=== PATIENT | male | born 1950 | race African-American/Black ===

== ENCOUNTER → 2017-06-19 | Outpatient (CLI) | payer MEDICARE ==
[2016-05-18 11:07] VITALS: BP 174/95
[~2017-06-19] MED LIST: GOSE10.8 SQ; INSU100V13 SQ; INSU100V31 SQ; LISI10TA2 PO; LISI1TAB7 PO; PRAV10TA2 PO; PROVENTIL HFA6.7 GM IH; TAMS0.4C97 PO; TIOT18CA IH
--- NOTE | 2017-06-19 13:00 | CARD ---
APPROVED REPORT EXAM: Two-dimensional and M-mode echocardiogram with Doppler and color Doppler. Other Information Quality : Average Rhythm : NSR INDICATION Dyspnea 2D DIMENSIONS RVDd2.4 (2.9-3.5cm)Left Atrium(2D)3.3 (1.6-4.0cm) IVSd1.2 (0.7-1.1cm)Aortic Root(2D)3.4 (2.0-3.7cm) LVDd4.1 (3.9-5.9cm)LVOT Diameter2.1 (1.8-2.4cm) PWd1.2 (0.7-1.1cm)LVDs3.0 (2.5-4.0cm) FS (%) 27.8 %SV41.4 ml LVEF(%)54.4 (>50%) Aortic Valve AoV Peak Jared.111.2cm/sAoV VTI20.0cm AO Peak GR.4.9mmHgLVOT Peak Jared.106.6cm/s LVOT VTI 20.73cmAO Mean GR.3mmHg KIRSTEN (VMAX)5.58cm2 Mitral Valve MV E Eqhvhnzw17.7cm/sMV DECEL GXYQ295cb MV A Ijydnstl56.6cm/sMV E Mean Gr.2mmHg MV BUI67mpA/A Ratio0.6 MV A Oospomba474xeLHW (PHT)3.24cm2 TDI E/Lateral E'9.2E/Medial E'8.8 Pulmonary Valve PV Peak Rokqufds086.6cm/sPV Peak Grad.7mmHg RVOT VTI12.4cm Tricuspid Valve TR P. Rfhqsunj674ad/sRAP JYREJEJX0jiQw TR Peak Gr.70oxFxNHGK19yfMt Pulmonary Vein S1 Jvqeuqii14.8cm/sD2 Ibdmwyps28.2cm/s LEFT VENTRICLE The left ventricle is normal size. There is borderline concentric left ventricular hypertrophy. Left ventricle systolic function is normal. The Ejection Fraction is 55-60%. There is normal LV segmental wall motion. Tissue Doppler imaging reveals mild left ventricular diastolic dysfunction. Transmitral Doppler flow pattern is Grade I-abnormal relaxation pattern. There is no ventricular septal defect vi sualized. RIGHT VENTRICLE The right ventricle is normal size. The right ventricular systolic function is normal. ATRIA The left atrium size is normal. The right atrium size is normal. The interatrial septum is intact wit h no evidence for an atrial septal defect or patent foramen ovale as noted on 2-D or Doppler imaging. AORTIC VALVE The aortic valve is normal in structure and function. The aortic valve is trileaflet. Doppler and Col or Flow revealed no significant aortic regurgitation. There is no significant aortic valvular stenosi s. MITRAL VALVE The mitral valve is normal in structure and function. There is no mitral valve stenosis. Doppler and Color Flow revealed trace mitral regurgitation. TRICUSPID VALVE The tricuspid valve is not well visualized. Doppler and Color Flow revealed trace tricuspid regurgita tion. The PA pressure was estimated at 18 mmHg. There is no tricuspid valve stenosis. PULMONIC VALVE The pulmonic valve is not well visualized. Doppler and Color Flow revealed no pulmonic valvular regur gitation. There is no pulmonic valvular stenosis. GREAT VESSELS The aortic root is normal in size. The ascending aorta is normal in size. Normal pulmonary venous guillermo w (Doppler). The IVC is normal in size and collapses >50% with inspiration. PERICARDIAL EFFUSION There is no evidence of significant pericardial effusion. Critical Notification Critical Value: No <Conclusion> Left ventricle systolic function is normal. The Ejection Fraction is 55-60%. There is normal LV segmental wall motion. Transmitral Doppler flow pattern is Grade I-abnormal relaxation pattern. Trace mitral regurgitation. Trace tricuspid regurgitation. The PA pressure was estimated at 18 mmHg. There is no evidence of significant pericardial effusion.
== END | disposition home or self-care (01) ==
LOC: ECHO 07:34
PROVIDERS: ATTEND Internal Medicine Cardiovascular Disease
DX: I08.1 Rheumatic disorders of both mitral and tricuspid valves (principal); R06.09 Other forms of dyspnea
CPT/HCPCS: 93306

== ENCOUNTER → 2018-02-27 | Outpatient (CLI) | payer MEDICARE ==
[2018-02-27 10:12] LABS: CREATININE 1.4 mg/dL (0.7-1.3)
[2018-02-27 10:12] LABS: GFR 61.4
[2018-02-27] MEDS: IOHEXOL 300 MG/ML 100ML VIAL. IV (11:15)
[2018-02-27] MEDS: IOHEXOL 240 MG/ML 50ML VIAL. PO (11:15)
== END | disposition home or self-care (01) ==
LOC: NM 14:55
DX: C61 Malignant neoplasm of prostate (principal); J44.9 Chronic obstructive pulmonary disease, unspecified; I10 Essential (primary) hypertension; E11.9 Type 2 diabetes mellitus without complications; E78.00 Pure hypercholesterolemia, unspecified; R91.1 Solitary pulmonary nodule
CPT/HCPCS: 36415; 74177; 78306; 82565; 96374; A9503; Q9966; Q9967

== ENCOUNTER 2018-09-30 07:42 | Outpatient (CLI) | payer MEDICARE ==
[2016-05-18 11:07] VITALS: BP 174/95
[~2018-09-30] VITALS: Ht 167.6 cm; Wt 95.3 kg
[2018-09-30 08:08] LABS: HEMATOCRIT 44.6 % (39.0-53.0); HEMOGLOBIN 15.6 g/dL (13.0-17.5); RED BLOOD COUNT 4.97 x10^6/uL (4.30-5.70); RED CELL DISTRIBUTION WIDTH 13.7 % (11.5-14.5); WHITE BLOOD COUNT 12.8 x10^3/uL (4.0-11.0)
[2018-09-30] MEDS ORDERED: IODIXANOL 320 MG/ML 100 ML VIAL. ONE (08:12)
[2018-09-30] MEDS ORDERED: LIDOCAINE 1% PF 2 ML VIAL. ONE (08:12)
[2018-09-30 08:19] LABS: CALCIUM 9.4 mg/dL (8.5-10.1); CREATININE 1.5 mg/dL (0.7-1.3); GFR 56.7; POTASSIUM 3.8 mmol/L (3.5-5.1)
[2018-09-30 08:21] LABS: PROTHROMBIN TIME PATIENT 13.4 SEC (11.7-14.0)
[2018-09-30] MEDS ORDERED: LISI-130 PO (12:06)
[2018-09-30] MEDS ORDERED: PRAV80TA2 PO (12:06)
[2018-09-30] MEDS ORDERED: AMLO5TAB4 PO (12:06)
[2018-09-30] MEDS ORDERED: TIOT4MIS3 IH (12:06)
== END 2018-09-30 08:40 | disposition home or self-care (01) ==
LOC: CCL 07:42
PROVIDERS: ATTEND Internal Medicine Cardiovascular Disease
DX: R06.09 Other forms of dyspnea (principal); J44.9 Chronic obstructive pulmonary disease, unspecified; E11.9 Type 2 diabetes mellitus without complications; E78.00 Pure hypercholesterolemia, unspecified; I10 Essential (primary) hypertension; Z87.891 Personal history of nicotine dependence; Z85.46 Personal history of malignant neoplasm of prostate; Z79.899 Other long term (current) drug therapy
CPT/HCPCS: 36415; 80048; 85027; 85610

== ENCOUNTER 2019-05-05 06:37 | Emergency (ER) | payer MEDICARE ==
[~2019-05-05] VITALS: Ht 167.6 cm; Wt 90.7 kg
[~2019-05-05 06:37] MED LIST changes: +ALBU2.5V8 IH; +AMLO5TAB4 PO; +LISI-130 PO; +PRAV80TA2 PO; -PROVENTIL HFA6.7 GM IH; +TIOT4MIS3 IH
--- NOTE | 2019-05-05 07:07 | PHYS DOC ---
Past Medical History Past Medical History: COPD, Diabetes-Type II, High Cholesterol, Hypertension, Other Additional Past Medical Histor: prostate cancer with radiation Past Surgical History: Other Additional Past Surgical Histo: hernia Smoking: Quit Greater Than 1 Year Alcohol Use: None Drug Use: None Adult General Chief Complaint Chief Complaint: SHORTNESS OF BREATH HPI HPI Patient is a 68 year old male who presents with complaining of shortness of breath. Patient has history of COPD without having home oxygen or smoking and complaining of increasing chronic shortness of breath gradually. Patient states he had has chronic cough that getting worse for the last 2-3 months and became productive recently with yellow sputum. Patient complaining of increasing shortness of breath since last night as a constant problem without chest pain, fever and chills, dizziness, focal neuro deficit, nausea and vomiting, diarrhea and constipation. Patient had O2 sat of 95% at room air at arrival to ER. Patient's daughter states he has had blood on erythema and discharge for the last day. Patient denies pain or change of vision. Review of Systems Review of Systems Constitutional: Denies fever or chills [] Eyes: Denies change in visual acuity, eye pain , reports redness[] HENT: Denies nasal congestion or sore throat [] Respiratory: Reports cough and shortness of breath Cardiovascular: No additional information not addressed in HPI [] GI: Denies abdominal pain, nausea, vomiting, bloody stools or diarrhea [] : Denies dysuria or hematuria [] Musculoskeletal: Denies back pain or joint pain [] Integument: Denies rash or skin lesions [] Neurologic: Denies headache, focal weakness or sensory changes [] Endocrine: Denies polyuria or polydipsia [] All other systems were reviewed and found to be within normal limits, except as documented in this note. Current Medications Current Medications Current Medications Medications (Trade) Dose Ordered Sig/Leighann Start Time Stop Time Status Last Admin Dose Admin Albuterol/ Ipratropium (Duoneb) 3 ml 1X ONCE 05/05/19 07:30 05/05/19 07:31 DC 05/05/19 07:14 3 ML Ceftriaxone Sodium (Rocephin) 1 gm 1X ONCE 05/05/19 08:00 05/05/19 08:01 DC 05/05/19 08:14 1 GM Methylprednisolone Sodium Succinate (SOLU-Medrol 125MG VIAL) 125 mg 1X ONCE 05/05/19 07:30 05/05/19 07:31 DC 05/05/19 07:00 125 MG Allergies Allergies Allergies Coded Allergies Type Severity Reaction Last Updated Verified No Known Drug Allergies 03/14/15 No Physical Exam Physical Exam Constitutional: Well developed, well nourished, mild distress, non-toxic appearance. [] HENT: Normocephalic, atraumatic, oropharynx moist. Eyes: PERRLA, EOMI, left conjunctival erythema , no discharge. [] Neck: Normal range of motion, no tenderness, supple, no stridor. [] Cardiovascular: Tachycardia, no murmur [] Lungs & Thorax: No respiratory distress, decrease of bilateral air movement, no wheezing or rhonchi. Abdomen: Bowel sounds normal, soft, no tenderness, no masses, no pulsatile masses. [] Skin: Warm, dry, no erythema, no rash. [] Back: No tenderness, no CVA tenderness. [] Extremities: No tenderness, no cyanosis, no clubbing, ROM intact, no edema. [] Neurologic: Alert and oriented X 3, normal motor function, normal sensory function, no focal deficits noted. [] Psychologic: Affect normal, judgement normal, mood normal. [] Current Patient Data Vital Signs Vital Signs Date Time Temp Pulse Resp B/P (MAP) Pulse Ox O2 Delivery O2 Flow Rate FiO2 05/05/19 07:45 106 27 161/89 (113) 97 Room Air 05/05/19 06:46 98.5 98.5 Lab Values Laboratory Tests Test 05/05/19 06:54 White Blood Count 14.2 x10^3/uL (4.0-11.0) H Red Blood Count 4.64 x10^6/uL (4.30-5.70) Hemoglobin 14.1 g/dL (13.0-17.5) Hematocrit 42.1 % (39.0-53.0) Mean Corpuscular Volume 91 fL (79-100) Mean Corpuscular Hemoglobin 30 pg (25-35) Mean Corpuscular Hemoglobin Concent 34 g/dL (31-37) Red Cell Distribution Width 14.4 % (11.5-14.5) Platelet Count 308 x10^3/uL (140-400) Neutrophils (%) (Auto) 52 % (31-73) Lymphocytes (%) (Auto) 31 % (24-48) Monocytes (%) (Auto) 13 % (0-9) H Eosinophils (%) (Auto) 4 % (0-3) H Basophils (%) (Auto) 0 % (0-3) Neutrophils # (Auto) 7.4 x10^3uL (1.8-7.7) Lymphocytes # (Auto) 4.4 x10^3/uL (1.0-4.8) Monocytes # (Auto) 1.8 x10^3/uL (0.0-1.1) H Eosinophils # (Auto) 0.6 x10^3/uL (0.0-0.7) Basophils # (Auto) 0.0 x10^3/uL (0.0-0.2) D-Dimer (Zoraida) 0.67 ug/mlFEU (0.00-0.50) H Sodium Level 137 mmol/L (136-145) Potassium Level 4.3 mmol/L (3.5-5.1) Chloride Level 103 mmol/L (98-107) Carbon Dioxide Level 23 mmol/L (21-32) Anion Gap 11 (6-14) Blood Urea Nitrogen 27 mg/dL (8-26) H Creatinine 1.7 mg/dL (0.7-1.3) H Estimated GFR (Cockcroft-Gault) 48.9 BUN/Creatinine Ratio 16 (6-20) Glucose Level 144 mg/dL (70-99) H Lactic Acid Level 1.4 mmol/L (0.4-2.0) Calcium Level 9.1 mg/dL (8.5-10.1) Magnesium Level 2.1 mg/dL (1.8-2.4) Total Bilirubin 0.3 mg/dL (0.2-1.0) Aspartate Amino Transferase (AST) 54 U/L (15-37) H Alanine Aminotransferase (ALT) 55 U/L (16-63) Alkaline Phosphatase 77 U/L (46-116) Creatine Kinase 1782 U/L (39-308) H Troponin I Quantitative < 0.017 ng/mL (0.000-0.055) ZR-Pgx-G-Type Natriuretic Peptide 27 pg/mL (0-124) Total Protein 8.0 g/dL (6.4-8.2) Albumin 3.7 g/dL (3.4-5.0) Albumin/Globulin Ratio 0.9 (1.0-1.7) L Laboratory Tests 05/05/19 06:54 Laboratory Tests 05/05/19 06:54 EKG EKG EKG interpreted by me. EKG at 0651 showed sinus tachycardia at rate of 117, abnormal left axis deviation, left anterior fascicular block, T-wave abnormality in lateral leads, poor R-wave progress in anteroseptal leads, no acute ST and T-wave abnormalities. Radiology/Procedures Radiology/Procedures [facility] [address] [place] [address] IMAGING REPORT Signed PATIENT: STEPHIE DOMINGUEZ ACCOUNT: [id number] : 1950 LOCATION: ER AGE: 68 SEX: M EXAM STATUS: REG ER ORD. PHYSICIAN: GINA MCDANIEL MD REASON: SOB AND COUGH PROCEDURE: CHEST PA & LATERAL CHEST PA LATERAL History: Shortness of breath and cough Comparison: 03/14/2015 portable chest x-ray exam. Findings: The cardiomediastinal silhouette is normal. Pulmonary vasculature is normal. The lungs are clear. No pleural effusion or pneumothorax is seen. There is no acute bone abnormality. IMPRESSION: No acute cardiopulmonary process. Electronically signed by: Candido Villatoro MD (05/05/2019 7:51 AM) [facility] DICTATED and SIGNED BY: CANDIDO VILLATORO MD DATE: 05/05/19 0751 Course & Med Decision Making Course & Med Decision Making Pertinent Labs and Imaging studies reviewed. (See chart for details) Evaluation of patient in ER showed 68-year-old male patient with complaining of shortness of breath and cough. Patient was afebrile but had tachycardia with O2 sat of 95% hospital. Patient with better with nebulizer treatment and Solu- Medrol. Chest x-ray did not show amputation. Lactic acid was less than 2 with white count of 14,000. D-dimer was 0.67 and did not raise a concern for PE or DVT. Patient wants to go home and have outpatient. 1 dose of Rocephin in ER was given. 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 I've spoken with the patient and/or caregivers. I've explained the patient's condition, diagnosis and treatment plan based on information available to me at this time. I've answered the patient's and/or caregivers questions and addressed any concerns. The patient and/or caregivers have a good understanding the patient's diagnosis, condition and treatment plan as can be expected at this point. Vital signs have been stabilized. The patient's condition is stable for discharge from the emergency department. The patient will pursue further outpatient evaluation with her primary care provider or other designated consulting physician as outlined in the discharge instructions. Patient and/or caregivers are agreeable to this plan of care and follow-up instructions have been explained in detail. The patient and/or caregivers have received these instructions in written format and expressed understanding of these discharge instructions. The patient and her caregivers are aware that if any significant change in condition or worsening of symptoms should prompt him to immediately return to this of the closest emergency departm ent. If an emergent department is not readily available I would encourage him to call 911. Dragon Disclaimer Dragon Disclaimer This electronic medical record was generated, in whole or in part, using a voice recognition dictation system. Departure Departure Impression: Primary Impression: COPD exacerbation Additional Impressions: Chronic renal insufficiency Uncontrolled diabetes mellitus Bacterial conjunctivitis of left eye Elevated CK SIRS (systemic inflammatory response syndrome) Disposition: 01 HOME, SELF-CARE (at 0 824) Condition: IMPROVED Referrals: Anne BUCKNER MD (PCP) Patient Instructions: Bacterial Conjunctivitis, Chronic Obstructive Pulmonary Disease Exacerbation Additional Instructions: Drink plenty of liquids Follow-up with your primary care physician in 3-5 days Return to ER if not getting better Follow-up with your eye physician in 2 or 3 days Scripts Benzonatate (TESSALON PERLE) 100 Mg Capsule 1 CAP PO TID for cough, #21 CAP Prov: GINA MCDANIEL MD 05/05/19 Albuterol Sulfate (PROAIR HFA INHALER) 8.5 Gm Hfa.aer.ad 2 PUFF INH PRN Q6HRS PRN for SHORTNESS OF BREATH, #1 INHALER 0 Refills Prov: GINA MCDANIEL MD 05/05/19 Ofloxacin (OCUFLOX) 5 Ml Drops 2 DROP LEFTEYE Q6HRS for 7 Days, #1 BOTTLE Prov: GINA MCDANIEL MD 05/05/19 Methylprednisolone (MEDROL) 4 Mg Tab.ds.pk 1 PKG PO UD for inflammation, #1 PKG Prov: GINA MCDANIEL MD 05/05/19 Doxycycline Hyclate (DOXYCYCLINE HYCLATE) 100 Mg Capsule 1 CAP PO BID, #14 CAP Prov: GINA MCDANIEL MD 05/05/19 Problem Qualifiers Additional Impressions: Chronic renal insufficiency Chronic kidney disease stage: unspecified stage Qualified Codes: N18.9 - Chronic kidney disease, unspecified Uncontrolled diabetes mellitus Diabetes mellitus type: other specified (including SUSANNAH) Glycemic state: with hyperglycemia Qualified Codes: E13.65 - Other specified diabetes mellitus with hyperglycemia GINA MCDANIEL MD May 05, 2019 07:07
[2019-05-05 07:20] LABS: CALCIUM 9.1 mg/dL (8.5-10.1); CREATININE 1.7 mg/dL (0.7-1.3); GFR 48.9; POTASSIUM 4.3 mmol/L (3.5-5.1)
[2019-05-05 07:28] LABS: BASO % 0 % (0-3); EOS # 0.6 x10^3/uL (0.0-0.7); EOS % 4 % (0-3); HEMATOCRIT 42.1 % (39.0-53.0); HEMOGLOBIN 14.1 g/dL (13.0-17.5); LYMPH # 4.4 x10^3/uL (1.0-4.8); LYMPH % 31 % (24-48); MEAN CORPUSCULAR HEMOGLOBIN 30 pg (25-35); MEAN CORPUSCULAR HGB CONC 34 g/dL (31-37); MEAN CORPUSCULAR VOLUME 91 fL (79-100); MONO # 1.8 x10^3/uL (0.0-1.1); MONO % 13 % (0-9); NEUT # 7.4 x10^3uL (1.8-7.7); NEUT % 52 % (31-73); PLATELET COUNT 308 x10^3/uL (140-400); RED BLOOD COUNT 4.64 x10^6/uL (4.30-5.70); RED CELL DISTRIBUTION WIDTH 14.4 % (11.5-14.5); WHITE BLOOD COUNT 14.2 x10^3/uL (4.0-11.0)
[2019-05-05] MEDS ORDERED: IPRATRPIUM/ALBUTEROL 0.5/2.5MG 3 ML NEBU. NEB ONE (07:30)
[2019-05-05] MEDS ORDERED: methylPREDNISolone SOD SUCC PF 125 MG/2 ML VIAL. IV ONE (07:30)
[2019-05-05 07:37] LABS: ALBUMIN 3.7 g/dL (3.4-5.0); ALBUMIN/GLOBULIN RATIO 0.9 (1.0-1.7); MAGNESIUM 2.1 mg/dL (1.8-2.4); TOTAL BILIRUBIN 0.3 mg/dL (0.2-1.0)
[2019-05-05 07:45] VITALS: BP 161/89
--- NOTE | 2019-05-05 07:54 | RAD ---
CHEST PA LATERAL History: Shortness of breath and cough Comparison: 03/14/2015 portable chest x-ray exam. Findings: The cardiomediastinal silhouette is normal. Pulmonary vasculature is normal. The lungs are clear. No pleural effusion or pneumothorax is seen. There is no acute bone abnormality. IMPRESSION: No acute cardiopulmonary process. Electronically signed by: Candido Salcedo MD (05/05/2019 7:51 AM) [facility]
[2019-05-05] MEDS ORDERED: cefTRIAXone IV Push 1 GM VIAL. IVP ONE (08:00)
[2019-05-05] MEDS ORDERED: BENZ100C PO (08:29)
[2019-05-05] MEDS ORDERED: OFLO5DRO LEFTEYE (08:29)
[2019-05-05] MEDS ORDERED: DOXY100C2 PO (08:29)
[2019-05-05] MEDS ORDERED: ALBU2.5V8 INH (08:29)
[2019-05-05] MEDS ORDERED: METH4TAB2 PO (08:29)
--- NOTE | 2019-05-05 08:56 | EKG ---
[facility] [address] [place] [address] Test Date: 2019-05-05 Test Time: 06:51:23 Pat Name: STEPHIE DOMINGUEZ Department: Room: Gender: M Rf Manager: : 1950 Requested By: GINA MCDANIEL Order Number: [id number] Reading MD: Measurements Intervals [place] Rate: 117 P: -1 AK: 148 QRS: -39 QRSD: 86 T: 80 QT: 294 QTc: 414 Interpretive Statements SINUS TACHYCARDIA ABNORMAL LEFT AXIS DEVIATION R-S TRANSITION ZONE IN V LEADS DISPLACED TO THE LEFT LEFT ANTERIOR FASCICULAR BLOCK T ABNORMALITY IN HIGH LATERAL LEADS ABNORMAL ECG No previous ECG available for comparison
== END 2019-05-05 08:37 | disposition home or self-care (01) ==
LOC: ER 06:37
DX: R65.10 Systemic inflammatory response syndrome (SIRS) of non-infectious origin without acute organ dysfunction (principal); I12.9 Hypertensive chronic kidney disease with stage 1 through stage 4 chronic kidney disease, or unspecified chronic kidney disease; E11.22 Type 2 diabetes mellitus with diabetic chronic kidney disease; N18.9 Chronic kidney disease, unspecified; J44.1 Chronic obstructive pulmonary disease with (acute) exacerbation; E78.00 Pure hypercholesterolemia, unspecified; E11.65 Type 2 diabetes mellitus with hyperglycemia; H10.89 Other conjunctivitis; B97.89 Other viral agents as the cause of diseases classified elsewhere; R74.8 Abnormal levels of other serum enzymes; Z87.891 Personal history of nicotine dependence
CPT/HCPCS: 36415; 71046; 80053; 82550; 83605; 83735; 83880; 84484; 85025; 85379; 93005; 94640; 96374; 96375; 99285; J0696; J2930; J7620

== ENCOUNTER → 2019-06-05 | Outpatient (CLI) | payer MEDICARE ==
[~2019-06-05] MED LIST changes: +ALBU2.5V8 INH; +BENZ100C PO; +DOXY100C2 PO; +METH4TAB2 PO; +OFLO5DRO LEFTEYE
--- NOTE | 2019-06-05 11:06 | KCIC ---
EXAM: Abdomen sonogram. HISTORY: Abnormal liver function laboratory values. TECHNIQUE: Sonographic imaging of the abdomen was performed. COMPARISON: CT dated 02/27/2018. FINDINGS: The liver is normal in size. There is hepatic steatosis. No focal hepatic lesion is seen. The common bile duct is normal in caliber. The gallbladder is unremarkable. The pancreas and inferior vena cava are partially obscured due to bowel gas. The aorta is not assessed. There are multiple right renal cysts, largest of which measures 4.2 cm and may contain internal septation. The remainder the cysts are simple in appearance. The right kidney is normal in size. There is no hydronephrosis. IMPRESSION: 1. Hepatic steatosis. 2. Multiple right renal cysts, the largest of which measures 4.2 cm and may be a complex cyst with internal septation. Follow-up with a renal sonogram is recommended confirm benignity. Electronically signed by: Trina Schreiber MD (06/05/2019 11:03 AM) [id number]
== END | disposition home or self-care (01) ==
LOC: KCIC US 09:03
PROVIDERS: ATTEND Family Medicine
DX: K76.0 Fatty (change of) liver, not elsewhere classified (principal); N28.1 Cyst of kidney, acquired
CPT/HCPCS: 76705